=== PATIENT | male | born 1950 | race African-American/Black ===

== ENCOUNTER 2018-12-07 10:45 | Inpatient (IN) | payer MEDICARE, MEDICAID ==
[~2018-12-07] VITALS: Ht 165.1 cm; Wt 67.3 kg
[~2018-12-07 10:45] MED LIST: ASPI-1158 PO; ATOR-2 PO; CLOP75TA33 PO; GABA-533 PO; LISI40TA4 PO; NIFE60TA77 PO; TAMS0.4C31 PO
[2018-12-07] MEDS ORDERED: CEFTRIAXONE 1 G PREMIX 50 ML IV ONE (11:30)
[2018-12-07] MEDS ORDERED: SODIUM CHLORIDE 0.9% 1000ML BAG (SEPSIS BOLUS) IV ONE (11:30)
[2018-12-07] MEDS ORDERED: HALOPERIDOL LACTATE 5MG/ML VIAL IM ONE (13:30)
[2018-12-07 14:28] LABS: BASOPHILS % 0.3 % (0.0-2.0); EOSINOPHILS % 1.1 % (0.0-5.0); HEMATOCRIT. 35.3 % (42.0-52.0); LYMPHOCYTES % 22.6 % (20.0-50.0); MEAN CORPUSCULAR HEMOGLOBIN 32.1 pg (28.0-32.0); MEAN CORPUSCULAR VOLUME 94.7 fL (80.0-94.0); MEAN PLATELET VOLUME 7.1 fl (7.4-10.4); MONOCYTES % 9.7 % (2.0-8.0); NEUTROPHILS % 66.3 % (40.0-76.0); PLATELET 167 x1000/uL (130-400); RED BLOOD CELL COUNT 3.72 mill/uL (4.7-6.1); RED CELL DISTRIBUTION WIDTH 13.9 % (11.6-14.6)
[2018-12-07 14:36] LABS: CHLORIDE 108 mEq/L (98-107)
[2018-12-07 14:37] LABS: PROTHROMBIN TIME 10.2 sec (9.6-11.0)
[2018-12-07 14:43] LABS: CLARITY URINE CLEAR (CLEAR); COLOR URINE YELLOW (YELLOW); KETONES URINE NEGATIVE (NEGATIVE); LEUKOCYTE ESTERASE URINE 2+ (NEGATIVE); NITRITE URINE NEGATIVE (NEGATIVE); OCCULT BLOOD URINE NEGATIVE (NEGATIVE); PROTEIN URINE 2+ (NEGATIVE); SPECIFIC GRAVITY URINE 1.021 (1.005-1.030)
[2018-12-07] MEDS ORDERED: DIPHENHYDRAMINE 50MG/ML VIAL IV PRN (15:15)
[2018-12-07] MEDS ORDERED: DOCUSATE SODIUM 100MG CAPSULE PO PRN (15:15)
[2018-12-07] MEDS ORDERED: GUAIFENESIN 200MG/10ML SUGAR FREE UDC PO PRN (15:15)
[2018-12-07] MEDS ORDERED: HYDROCODONE/ACETAMINOPHEN 5/325MG TABLET PO PRN (15:15)
[2018-12-07] MEDS ORDERED: IPRATROPIUM/ALBUTEROL 0.5-3(2.5)MG/3ML NEB HHN PRN (15:15)
[2018-12-07] MEDS ORDERED: MAGNESIUM/ALUMINUM HYDROXIDE/SIMETHICONE 30ML UDC PO PRN (15:15)
[2018-12-07] MEDS ORDERED: ACETAMINOPHEN 325MG TABLET PO PRN (15:15)
[2018-12-07] MEDS ORDERED: ONDANSETRON HCL 4MG/2ML INJ IV PRN (15:15)
[2018-12-07 16:24] LABS: PHOSPHORUS 3.2 mg/dL (2.5-4.9)
[2018-12-07 20:00] VITALS: BP 178/91
[2018-12-07] MEDS ORDERED: DEXTROSE 50% WATER 50ML SYRINGE IV PRN (20:30)
[2018-12-07] MEDS ORDERED: CEFTRIAXONE 1 G PREMIX 50 ML IV SCH (21:00)
[2018-12-07] MEDS: INSULIN LISPRO 100 UNITS/ML SUBCUT SCH (21:00)
[2018-12-07] MEDS: BLOOD SUGAR DIAGNOSTIC STRIP TEST SCH (21:28)
[2018-12-07] MEDS: SODIUM CHLORIDE 0.9% 1,000 ML IV SCH (21:30)
[2018-12-07] MEDS: ENOXAPARIN 40MG/0.4ML SYR SUBCUT SCH (21:31)
[2018-12-07] MEDS: CLONIDINE 0.1MG TABLET PO PRN (22:07)
[2018-12-08] VITALS: BP 168/89
[2018-12-08 04:00] VITALS: BP 139/87
[2018-12-08 06:43] LABS: CHLORIDE 115 mEq/L (98-107)
[2018-12-08 06:51] LABS: BASOPHILS % 0.3 % (0.0-2.0); EOSINOPHILS % 1.1 % (0.0-5.0); HEMATOCRIT. 35.2 % (42.0-52.0); HEMOGLOBIN. 11.9 g/dL (14.0-18.0); LYMPHOCYTES % 26.9 % (20.0-50.0); MEAN CORPUSCULAR HEMOGLOBIN 31.9 pg (28.0-32.0); MEAN CORPUSCULAR VOLUME 94.4 fL (80.0-94.0); MEAN PLATELET VOLUME 7.3 fl (7.4-10.4); MONOCYTES % 11.1 % (2.0-8.0); NEUTROPHILS % 60.6 % (40.0-76.0); PLATELET 166 x1000/uL (130-400); RED BLOOD CELL COUNT 3.73 mill/uL (4.7-6.1); RED CELL DISTRIBUTION WIDTH 13.8 % (11.6-14.6)
[2018-12-08 06:59] LABS: LDL CHOLESTEROL 42 mg/dL (5-100)
[2018-12-08 07:00] LABS: HDL CHOLESTEROL 36 mg/dL (40-59)
[2018-12-08] MEDS: INSULIN LISPRO 100 UNITS/ML SUBCUT SCH ×4 (07:15→20:48)
[2018-12-08] MEDS: BLOOD SUGAR DIAGNOSTIC STRIP TEST SCH ×4 (07:36→20:48)
[2018-12-08 08:00] VITALS: BP 115/86
[2018-12-08 12:00] VITALS: BP 147/90
[2018-12-08 16:00] VITALS: BP 138/96
[2018-12-08] MEDS: SODIUM CHLORIDE 0.9% 1,000 ML IV SCH ×2 (17:23→23:10)
[2018-12-08 20:00] VITALS: BP 188/94
[2018-12-08] MEDS: CLONIDINE 0.1MG TABLET PO PRN (20:48)
[2018-12-08] MEDS: ENOXAPARIN 40MG/0.4ML SYR SUBCUT SCH (20:49)
[2018-12-08] MEDS: CEFTRIAXONE 1 G PREMIX 50 ML IV SCH (23:06)
[2018-12-08 23:35] LABS: FOLIC ACID (FOLATE) SERUM 5.4 ng/mL (>5.38)
[2018-12-09] VITALS (7 sets, daily range): BP systolic 117–194; BP diastolic 71–100
[2018-12-09] MEDS: CLONIDINE 0.1MG TABLET PO PRN ×2 (04:49→16:04)
[2018-12-09] MEDS: BLOOD SUGAR DIAGNOSTIC STRIP TEST SCH ×4 (06:27→21:00)
[2018-12-09] MEDS: INSULIN LISPRO 100 UNITS/ML SUBCUT SCH ×4 (06:27→21:00)
[2018-12-09] MEDS ORDERED: HYDRALAZINE 20MG/ML VIAL IV PRN (07:15)
[2018-12-09] MEDS: NIFEDIPINE XL 60MG TAB PO SCH (08:42)
[2018-12-09 09:38] LABS: BASOPHILS % 0.3 % (0.0-2.0); EOSINOPHILS % 0.7 % (0.0-5.0); HEMATOCRIT. 35.5 % (42.0-52.0); HEMOGLOBIN. 11.8 g/dL (14.0-18.0); LYMPHOCYTES % 19.7 % (20.0-50.0); MEAN CORPUSCULAR HEMOGLOBIN 31.7 pg (28.0-32.0); MONOCYTES % 8.5 % (2.0-8.0); NEUTROPHILS % 70.8 % (40.0-76.0); PLATELET 168 x1000/uL (130-400); RED BLOOD CELL COUNT 3.73 mill/uL (4.7-6.1); RED CELL DISTRIBUTION WIDTH 13.6 % (11.6-14.6)
[2018-12-09 09:50] LABS: PHOSPHORUS 3.1 mg/dL (2.5-4.9)
[2018-12-09 13:16] LABS: ETHANOL BLOOD < 10 mg/dL
[2018-12-09 13:21] LABS: T4 FREE 1.06 ng/dL (0.76-1.46)
[2018-12-09 14:39] LABS: *AMPHETAMINES SCREEN URINE NEGATIVE (NEGATIVE); *BARBITURATES SCREEN URINE NEGATIVE (NEGATIVE); *BENZODIAZEPINES SCREEN URINE NEGATIVE (NEGATIVE); *COCAINE SCREEN URINE NEGATIVE (NEGATIVE)
[2018-12-09 14:40] LABS: CANNABINOID URINE SCREEN NEGATIVE (NEGATIVE); METHADONE URINE SCREEN NEGATIVE (NEGATIVE); OPIATES URINE SCREEN NEGATIVE (NEGATIVE); PHENCYCLIDINE URINE SCREEN NEGATIVE (NEGATIVE)
[2018-12-09] MEDS: CEFTRIAXONE 1 G PREMIX 50 ML IV SCH (20:38)
[2018-12-09] MEDS: ENOXAPARIN 40MG/0.4ML SYR SUBCUT SCH (20:39)
[2018-12-10] VITALS: BP_SYST 167; BP_SYST 91; BP_DIAS 51; BP_DIAS 88
[2018-12-10] MEDS ORDERED: DEXTROSE 50% WATER 50ML SYRINGE IV PRN (02:30)
[2018-12-10 04:00] VITALS: BP 156/90
[2018-12-10] MEDS ORDERED: BLOOD SUGAR DIAGNOSTIC STRIP TEST SCH (07:10)
[2018-12-10] MEDS: INSULIN LISPRO 100 UNITS/ML SUBCUT SCH ×4 (07:24→20:52)
[2018-12-10] MEDS: BLOOD SUGAR DIAGNOSTIC STRIP TEST SCH ×4 (07:24→20:53)
[2018-12-10] MEDS ORDERED: INSULIN LISPRO 100 UNITS/ML SUBCUT SCH (07:40)
[2018-12-10 08:00] VITALS: BP 192/89
[2018-12-10 08:00] LABS: BASOPHILS % 0.4 % (0.0-2.0); EOSINOPHILS % 0.7 % (0.0-5.0); HEMATOCRIT. 35.9 % (42.0-52.0); HEMOGLOBIN. 12.2 g/dL (14.0-18.0); LYMPHOCYTES % 29.5 % (20.0-50.0); MEAN CORPUSCULAR HEMOGLOBIN 31.9 pg (28.0-32.0); MEAN CORPUSCULAR VOLUME 94.2 fL (80.0-94.0); MEAN PLATELET VOLUME 7.3 fl (7.4-10.4); MONOCYTES % 10.6 % (2.0-8.0); NEUTROPHILS % 58.8 % (40.0-76.0); PLATELET 173 x1000/uL (130-400); RED BLOOD CELL COUNT 3.81 mill/uL (4.7-6.1); RED CELL DISTRIBUTION WIDTH 13.9 % (11.6-14.6)
[2018-12-10] MEDS: NIFEDIPINE XL 60MG TAB PO SCH ×2 (08:14→20:57)
[2018-12-10] MEDS ORDERED: AMLODIPINE 5MG TABLET PO SCH (11:00)
[2018-12-10 12:00] VITALS: BP 155/85
[2018-12-10] MEDS: LOSARTAN POTASSIUM 25 MG TABLET PO SCH (13:17)
[2018-12-10 16:00] VITALS: BP 126/81
[2018-12-10 20:00] VITALS: BP 126/73
[2018-12-10] MEDS: CEFTRIAXONE 1 G PREMIX 50 ML IV SCH (20:56)
[2018-12-10] MEDS: ENOXAPARIN 40MG/0.4ML SYR SUBCUT SCH (20:57)
[2018-12-11] VITALS: BP 135/70
[2018-12-11 04:00] VITALS: BP 135/69
[2018-12-11] MEDS: INSULIN LISPRO 100 UNITS/ML SUBCUT SCH (05:45)
[2018-12-11] MEDS: BLOOD SUGAR DIAGNOSTIC STRIP TEST SCH (05:46)
[2018-12-11 08:00] VITALS: BP 118/74
[2018-12-11] MEDS: LOSARTAN POTASSIUM 25 MG TABLET PO SCH (08:22)
[2018-12-11] MEDS: NIFEDIPINE XL 60MG TAB PO SCH ×2 (08:22→08:24)
[2018-12-11] MEDS ORDERED: NIFE60TA64 PO (11:55)
[2018-12-11] MEDS ORDERED: LOSA25TA3 PO (11:55)
[2018-12-11 12:40] VITALS: BP 117/74
== END 2018-12-11 14:25 | disposition home or self-care (01) | DRG 682 ==
LOC: ER 10:45 → 5WST 14:59 → EDBEDREQTM 15:07 → EDBEDREQ 15:07 → EDBEDREQSVC 15:07 → ENRESERV 17:18 → 8WST 12-09 21:31
PROVIDERS: ADMIT Internal Medicine; ATTEND Internal Medicine
PROC: 4B02XSZ Measurement of Cardiac Pacemaker, External Approach (ICD-10-PCS; 2018-12-09)
PROC: 4A00X4Z Measurement of Central Nervous Electrical Activity, External Approach (ICD-10-PCS; principal; 2018-12-10)
DX: N17.9 Acute kidney failure, unspecified (principal); G92 Toxic encephalopathy; E44.0 Moderate protein-calorie malnutrition; N39.0 Urinary tract infection, site not specified; I12.9 Hypertensive chronic kidney disease with stage 1 through stage 4 chronic kidney disease, or unspecified chronic kidney disease; K40.20 Bilateral inguinal hernia, without obstruction or gangrene, not specified as recurrent; N18.3 Chronic kidney disease, stage 3 (moderate); E11.22 Type 2 diabetes mellitus with diabetic chronic kidney disease; E78.5 Hyperlipidemia, unspecified; N40.1 Benign prostatic hyperplasia with lower urinary tract symptoms; I25.10 Atherosclerotic heart disease of native coronary artery without angina pectoris; E11.65 Type 2 diabetes mellitus with hyperglycemia; D53.9 Nutritional anemia, unspecified; B95.8 Unspecified staphylococcus as the cause of diseases classified elsewhere; T18.2XXA Foreign body in stomach, initial encounter; X58.XXXA Exposure to other specified factors, initial encounter; I95.9 Hypotension, unspecified; J44.9 Chronic obstructive pulmonary disease, unspecified; K27.9 Peptic ulcer, site unspecified, unspecified as acute or chronic, without hemorrhage or perforation; Z95.0 Presence of cardiac pacemaker; Z82.49 Family history of ischemic heart disease and other diseases of the circulatory system; Z86.73 Personal history of transient ischemic attack (TIA), and cerebral infarction without residual deficits; Z79.82 Long term (current) use of aspirin; Z79.899 Other long term (current) drug therapy; Y93.89 Activity, other specified; Y92.89 Other specified places as the place of occurrence of the external cause; Y99.8 Other external cause status; Z68.24 Body mass index [BMI] 24.0-24.9, adult
CPT/HCPCS: 36415; 71045; 74176; 76770; 80048; 80061; 80305; 80320; 81003; 82140; 82550; 82607; 82746; 82962; 83036; 83605; 83735; 84100; 84145; 84439; 84443; 84481; 84484; 87077; 93005; 93306; 93970; 97116; 97162; 97166; 99285; J0696; J1630; J1650; J7030; G0480

== ENCOUNTER 2019-10-31 21:03 | Inpatient (IN) | payer MEDICARE, MEDICAID ==
[~2019-10-31] VITALS: Ht 170.2 cm; Wt 65.8 kg
[~2019-10-31 21:03] MED LIST changes: -LISI40TA4 PO; +LOSA25TA3 PO; +NIFE-32 PO; -NIFE60TA77 PO
[2019-10-31] MEDS ORDERED: SODIUM CHLORIDE 0.9% 1,000 ML IV ONE (22:33)
[2019-10-31 23:17] LABS: BASOPHILS % 0.3 % (0.0-2.0); EOSINOPHILS % 1.1 % (0.0-5.0); HEMATOCRIT. 35.2 % (42.0-52.0); HEMOGLOBIN. 11.7 g/dL (14.0-18.0); LYMPHOCYTES % 24.6 % (20.0-50.0); MEAN CORPUSCULAR HEMOGLOBIN 31.9 pg (28.0-32.0); MEAN CORPUSCULAR VOLUME 95.8 fL (80.0-94.0); MEAN PLATELET VOLUME 7.3 fl (7.4-10.4); MONOCYTES % 11.4 % (2.0-8.0); NEUTROPHILS % 62.6 % (40.0-76.0); PLATELET 144 x1000/uL (130-400); RED BLOOD CELL COUNT 3.67 mill/uL (4.7-6.1); RED CELL DISTRIBUTION WIDTH 13.7 % (11.6-14.6)
[2019-10-31 23:18] LABS: CHLORIDE 111 mEq/L (98-107)
[2019-10-31 23:42] LABS: CLARITY URINE CLEAR (CLEAR); COLOR URINE YELLOW (YELLOW); KETONES URINE NEGATIVE (NEGATIVE); LEUKOCYTE ESTERASE URINE TRACE (NEGATIVE); NITRITE URINE NEGATIVE (NEGATIVE); OCCULT BLOOD URINE NEGATIVE (NEGATIVE); PROTEIN URINE 2+ (NEGATIVE); SPECIFIC GRAVITY URINE 1.017 (1.005-1.030)
[2019-11-01] MEDS: CLONIDINE 0.1MG TABLET PO PRN ×2 (02:29→14:19)
[2019-11-01 03:35] VITALS: BP 172/82
[2019-11-01] MEDS ORDERED: DEXTROSE 50% WATER 50ML SYRINGE IV PRN (05:00)
[2019-11-01] MEDS: METHYLPREDNISOLONE SOD SUCC 40 MG/ML VIAL IV SCH ×2 (05:56→14:19)
[2019-11-01] MEDS ORDERED: LEVOFLOXACIN 250MG PREMIX 50 ML IV SCH (06:00)
[2019-11-01] MEDS: BLOOD SUGAR DIAGNOSTIC STRIP TEST SCH ×2 (06:55→12:08)
[2019-11-01] MEDS: INSULIN LISPRO 100 UNITS/ML SUBCUT SCH ×2 (06:55→12:09)
[2019-11-01 08:00] VITALS: BP_SYST 158; BP_SYST 196; BP_DIAS 82; BP_DIAS 93
[2019-11-01] MEDS ORDERED: IPRATROPIUM/ALBUTEROL 0.5-3(2.5)MG/3ML NEB HHN SCH (08:00)
[2019-11-01] MEDS: GABAPENTIN 400MG CAPSULE PO SCH (08:51)
[2019-11-01] MEDS: NIFEDIPINE XL 60MG TAB PO SCH ×3 (08:51→20:42)
[2019-11-01] MEDS: TAMSULOSIN HCL 0.4MG SR CAPSULE PO SCH (08:52)
[2019-11-01] MEDS: CLOPIDOGREL 75MG TABLET PO SCH (08:53)
[2019-11-01] MEDS ORDERED: MEDICATION NOT ON FORMULARY EA (Atorvastatin Calcium 80 MG) PO SCH (09:00)
[2019-11-01] MEDS ORDERED: LOSARTAN POTASSIUM 25 MG TABLET PO SCH (09:00)
[2019-11-01] MEDS: ALBUTEROL (0.083%) 2.5MG/3ML NEB HHN SCH ×2 (09:05→17:33)
[2019-11-01] MEDS: ASPIRIN 81MG EC TABLET PO SCH (10:02)
[2019-11-01 11:59] VITALS: BP 167/80
[2019-11-01 14:36] LABS: HEMATOCRIT 34.8 % (42.0-52.0); HEMOGLOBIN 11.6 g/dL (14.0-18.0); MEAN CORPUSCULAR HEMOGLOBIN 31.8 pg (28.0-32.0); MEAN CORPUSCULAR VOLUME 95.1 fL (80.0-94.0); PLATELET 140 x1000/uL (130-400); RED BLOOD CELL COUNT 3.66 mill/uL (4.7-6.1); RED CELL DISTRIBUTION WIDTH 13.4 % (11.6-14.6)
[2019-11-01] MEDS ORDERED: IPRATROPIUM/ALBUTEROL 0.5-3(2.5)MG/3ML NEB HHN PRN (15:15)
[2019-11-01 15:57] LABS: CREATINE KINASE 60 IU/L (39-308)
[2019-11-01 16:00] VITALS: BP 162/71
[2019-11-01 16:45] LABS: VITAMIN B12 SERUM 408 pg/mL (211-911)
[2019-11-01 20:00] VITALS: BP 133/74
[2019-11-01] MEDS: ATORVASTATIN CALCIUM 40MG TABLET PO SCH ×2 (20:33→20:42)
[2019-11-02] VITALS (7 sets, daily range): BP systolic 107–167; BP diastolic 59–91
[2019-11-02 01:25] LABS: *AMPHETAMINES SCREEN URINE NEGATIVE (NEGATIVE); *BARBITURATES SCREEN URINE NEGATIVE (NEGATIVE); *BENZODIAZEPINES SCREEN URINE NEGATIVE (NEGATIVE)
[2019-11-02 01:26] LABS: *COCAINE SCREEN URINE NEGATIVE (NEGATIVE); CANNABINOID URINE SCREEN NEGATIVE (NEGATIVE); METHADONE URINE SCREEN NEGATIVE (NEGATIVE); OPIATES URINE SCREEN NEGATIVE (NEGATIVE); PHENCYCLIDINE URINE SCREEN NEGATIVE (NEGATIVE)
[2019-11-02] MEDS: CLONIDINE 0.1MG TABLET PO PRN (05:01)
[2019-11-02] MEDS: ALBUTEROL (0.083%) 2.5MG/3ML NEB HHN SCH ×2 (07:54→18:40)
[2019-11-02] MEDS: CLOPIDOGREL 75MG TABLET PO SCH (08:34)
[2019-11-02] MEDS: ASPIRIN 81MG EC TABLET PO SCH (08:34)
[2019-11-02] MEDS: TAMSULOSIN HCL 0.4MG SR CAPSULE PO SCH (08:34)
[2019-11-02] MEDS: GABAPENTIN 400MG CAPSULE PO SCH (08:34)
[2019-11-02] MEDS: NIFEDIPINE XL 60MG TAB PO SCH (09:00)
[2019-11-02] MEDS ORDERED: NIFEDIPINE XL 60MG TAB PO SCH (15:30)
[2019-11-02] MEDS: ATORVASTATIN CALCIUM 40MG TABLET PO SCH (20:33)
[2019-11-03] VITALS: BP 118/67
== END 2019-11-03 00:30 | DRG 682 ==
LOC: ER 21:03 → 8WST 11-01 00:48 → EDBEDREQ 11-01 00:51 → EDBEDREQDT 11-01 00:51 → EDBEDREQTM 11-01 00:51 → ENRESERV 11-01 02:43
PROVIDERS: ADMIT Internal Medicine; ATTEND Internal Medicine
DX: I12.9 Hypertensive chronic kidney disease with stage 1 through stage 4 chronic kidney disease, or unspecified chronic kidney disease (principal); N17.0 Acute kidney failure with tubular necrosis; E44.1 Mild protein-calorie malnutrition; D64.9 Anemia, unspecified; E11.22 Type 2 diabetes mellitus with diabetic chronic kidney disease; E87.8 Other disorders of electrolyte and fluid balance, not elsewhere classified; N18.9 Chronic kidney disease, unspecified; T14.8XXA Other injury of unspecified body region, initial encounter; X58.XXXA Exposure to other specified factors, initial encounter; R62.7 Adult failure to thrive; Y93.89 Activity, other specified; Y92.89 Other specified places as the place of occurrence of the external cause; Z68.22 Body mass index [BMI] 22.0-22.9, adult; Y99.8 Other external cause status; Z79.899 Other long term (current) drug therapy; Z95.0 Presence of cardiac pacemaker; Z59.0 Homelessness; I69.90 Unspecified sequelae of unspecified cerebrovascular disease
CPT/HCPCS: 36415; 71045; 80048; 80053; 80305; 81003; 82550; 82607; 82962; 83036; 83605; 83880; 84145; 84484; 85025; 85027; 93005; 93970; 94640; 97110; 97162; 97530; 99285; J1956; J2920; J7030; U0003-CS